=== PATIENT | female | born 1985 | race Caucasian/White ===

== ENCOUNTER 2019-12-26 12:50 | Day surgery (SDC) | payer BC ==
[2019-12-19 15:30] LABS: BASOPHILS # (AUTO) 0.1 X10'3 (0-0.2); BASOPHILS % (AUTO) 0.7 % (0-1); EOSINOPHILS # (AUTO) 0.1 X10'3 (0-0.9); EOSINOPHILS % (AUTO) 0.9 % (0-6); LYMPHOCYTES # (AUTO) 2.9 X10'3 (1.1-4.8); LYMPHOCYTES % (AUTO) 28.1 % (21-51); MEAN CORPUSCULAR HEMOGLOBIN 24.9 PG (27.0-31.0); MEAN CORPUSCULAR HGB CONC 33.1 g/dL (33.0-36.5); MEAN CORPUSCULAR VOLUME 75.2 FL (78-98); MEAN PLATELET VOLUME 6.5 FL (7.4-10.4); MONOCYTES # (AUTO) 0.6 X10'3 (0-0.9); MONOCYTES % (AUTO) 5.7 % (2-12); NEUTROPHILS # (AUTO) 6.6 X10'3 (1.8-7.7); NEUTROPHILS % (AUTO) 64.6 % (42-75); PRE OP HEMOGLOBIN 12.9 g/dL (12.0-16.0); PRE OP PLATELET COUNT 305 X10'3 (140-440); RED BLOOD COUNT 5.18 X10'6 (4.20-5.60)
[2019-12-19 15:55] LABS: ALBUMIN 3.7 G/DL (3.4-5.0); ALBUMIN/GLOBULIN RATIO 0.8 (1.1-1.5); ALKALINE PHOSPHATASE 71 IU/L (46-116); BLOOD UREA NITROGEN 15 MG/DL (7-18); BUN/CREATININE RATIO 18.1 (6.6-38.0); CALCIUM 8.7 MG/DL (8.5-10.1); CHLORIDE 104 MMOL/L (99-107); CREATININE 0.83 MG/DL (0.40-0.90); PRE OP ALT 23 U/L (30-65); PRE OP ANION GAP 8 (8-16); PRE OP AST 20 U/L (10-37); PRE OP BILIRUB, TOTAL 0.2 MG/DL (0.0-1.0); PRE OP GLUCOSE 86 MG/DL (70-104); PRE OP POTASSIUM 3.9 MMOL/L (3.4-5.1); PRE OP SODIUM 139 MMOL/L (135-145); TOTAL CARBON DIOXIDE 27.4 MMOL/L (24-32); TOTAL PROTEIN 8.2 G/DL (6.4-8.2); eGFR 79 ML/MIN
[2019-12-19 16:02] LABS: HCG SERUM QL NEGATIVE
[2019-12-26] VITALS (14 sets, daily range): BP systolic 113–132; BP diastolic 56–79
[~2019-12-26] VITALS: Ht 162.6 cm; Wt 125.0 kg
[~2019-12-26 12:50] MED LIST: GENTAMICIN IV ONE; MESSAGE TO NURSING IV ONE; NORMAL SALINE IV ONE; OMEP-50 PO; PRENATAL VIT; VITAMIN C; VITAMIN D3; ZINC; famotidine 20mg tablet PO ONE; ringers solution, lacted 1,000 ML IV SCH
[2019-12-26] MEDS ORDERED: CLINDAmcin 900mg/NS 50ml IVPB 50 ML IV ONE (13:25)
[2019-12-26] MEDS ORDERED: NORMAL SALINE IV ONE (13:35)
[2019-12-26] MEDS ORDERED: GENTAMICIN IV ONE (13:35)
[2019-12-26] MEDS ORDERED: clindamycin-Cleocin 900mg/D5W 50 ML IV ONE (13:35)
[2019-12-26] MEDS ORDERED: ringers solution, lacted 1,000 ML IV SCH (15:18)
[2019-12-26] MEDS ORDERED: proCHLORperazine 10 MG/2 ml inj IV PRN (15:20)
[2019-12-26] MEDS ORDERED: morphine 2 MG/ML inj. syringe IV PRN (15:20)
[2019-12-26] MEDS ORDERED: morphine 4 MG/ML inj SYRINge IV PRN (15:20)
[2019-12-26] MEDS ORDERED: meperidine/PF 25mg/ml syringe IV PRN ×3 (15:20)
[2019-12-26] MEDS ORDERED: ondansetron/PF 4mg/2ml inj IV PRN (15:20)
[2019-12-26] MEDS ORDERED: sevoflurane 250ml liquid IH ONE (15:32)
[2019-12-26] MEDS ORDERED: fentaNYL/PF 50MCG/1 ML 2ML syringe ONE (15:37)
[2019-12-26] MEDS ORDERED: midazolam 2 mg/2 ml injection ONE (15:38)
[2019-12-26] MEDS ORDERED: propofol inj 20 ML IV ONE (16:08)
[2019-12-26] MEDS ORDERED: rocuronium 10mg/ml inj IV ONE (16:08)
[2019-12-26] MEDS ORDERED: sugammadex 200mg/2ml injection IV ONE (16:09)
--- NOTE | 2019-12-26 16:25 | NUR ---
Received from OR via [facility], accompanied by Anesthesiologist DR STORY and report given by Anesthesiologist. PT DROWSY, DENIES PAIN, PETE PAD IN PLACE. CDI. Addendum: 12/26/19 at 1801 by Anne Marie Austin RN Amended: Links added.
--- NOTE | 2019-12-26 18:55 | NUR ---
PT UP AND ABLE TO AMBULATE SAFELY TO BATHROOM FOR VOID, MODERATE AMT OF BLOOD ON PETE-PAD, NEW ONE GIVEN TO PT, D/C INSTRUCTIONS GIVEN AND GONE OVER W/PT WHO VERBALIZED UNDERSTANDING, PT D/CD TO HOME VIA W/C TO PRIVATE VEHICLE W/O INCIDENT. Addendum: 12/26/19 at 0 by Anne Marie Austin RN Amended: Links added.
== END 2019-12-26 18:55 | disposition home or self-care (01) ==
LOC: PAS 12:50
PROVIDERS: ATTEND Obstetrics & Gynecology Obstetrics
DX: N85.8 Other specified noninflammatory disorders of uterus (principal); N84.0 Polyp of corpus uteri; N96 Recurrent pregnancy loss; Z79.899 Other long term (current) drug therapy; Z11.59 Encounter for screening for other viral diseases; E66.9 Obesity, unspecified; Z68.42 Body mass index [BMI] 45.0-49.9, adult; Z90.49 Acquired absence of other specified parts of digestive tract; Z98.890 Other specified postprocedural states; Z90.3 Acquired absence of stomach [part of]; Z91.040 Latex allergy status; Z88.0 Allergy status to penicillin
CPT/HCPCS: 36415; 58558; 80053; 82948; 84703; 85025; 86885; 86900; 86901; 87635; C9399; J1580; J2175; J2250; J2405; J2704; J3010; J7030; A4355; A4618; A6258; A7000; J3490; J7120